=== PATIENT | male | born 1970 | race Caucasian/White ===

== ENCOUNTER 2019-03-29 09:05 | Emergency (ER) | payer MEDICAID ==
[~2019-03-29] VITALS: Ht 177.8 cm; Wt 86.2 kg
[2019-03-29 09:08] VITALS: Ht 177.8 cm; Wt 86.2 kg
[2019-03-29 10:13] VITALS: BP 111/75
== END 2019-03-29 10:54 | disposition home or self-care (01) ==
LOC: ED 09:05
DX: S80.812A Abrasion, left lower leg, initial encounter (principal); S80.811A Abrasion, right lower leg, initial encounter; V02.09XA Pedestrian with other conveyance injured in collision with two- or three-wheeled motor vehicle in nontraffic accident, initial encounter; Y93.I9 Activity, other involving external motion; Y92.488 Other paved roadways as the place of occurrence of the external cause; Y99.8 Other external cause status